=== PATIENT | female | born 1940 | race Caucasian/White ===

== ENCOUNTER → 2019-01-23 | Outpatient (CLI) | payer MEDICARE ==
[2016-03-12 10:25] VITALS: BP 172/76
[~2019-01-23] MED LIST: ALBU2.5V8 INH; BYSTOLIC5 MG PO; CONTRAST GIVEN. MC PRN; CRESTOR5 MG PO; DULO60CA6 PO; ESOM40CA PO; ESTR0.62 PO; IOHEXOL 180 MG/ML 10 ML VIAL. IT ONE; LIDOCAINE 1% Multi-Dose 20 ML VIAL. ID ONE; LISI-334 PO; ZOLP5TAB PO
--- NOTE | 2019-01-23 11:53 | KCIC ---
Lumbar Myelogram History: Lumbar radiculopathy, bilateral radiculopathy, previous surgery and stimulator Technique: Patient was informed of the risks of the procedure to include pain, infection, bleeding, seizures, nerve root injury, and allergic reaction to the contrast. All questions were answered. Patient signed a written consent form for a lumbar myelogram. The patient was placed in a prone oblique position on the fluoroscopy table. External site of the lower back was prepped and draped in the usual sterile fashion. Betadine was utilized for cleansing solution. 1% lidocaine was utilized for local anesthesia at the anticipated site of puncture right L2-3 interlaminar space. A 19-gauge guiding needle was advanced into the soft tissues. Through the guiding needle, a 25 gauge Otni needle was advanced until there was return of cerebral spinal fluid. Approximately 15 cc of Omnipaque 180 were then injected during fluoroscopic visualization. The needles were removed. Bandage was applied. Fluoroscopic spot images including standing images were acquired of the lumbar spine. The patient was then transferred to the CT department for CT examination of the lumbar spine. There were no immediate complications. Fluoroscopy time: 89 seconds, 16 images. FINDINGS: There is no evidence of myelographic block. There is intact posterolateral fusion hardware, and bilateral pedicle screws at L4 and L5 attached to vertical rods. There is mild grade 1 anterior spondylolisthesis at L4-5 similar with flexion and extension. There is minimal grade 1 anterior spondylolisthesis at L3-4, very slightly accentuated with flexion. There is minimal posterior subluxation L1 relative to L2 fairly similar with flexion and extension. There are small anterior extradural defects L1-2 and L2-3. There is degenerative disc disease greatest L1-2 and L5-S1. There are thoracic spinal stimulator leads not fully evaluated on this exam. Impression: 1. There are small anterior extradural defects greatest L1-2 and L2-3. There is multilevel mild abnormal alignment as stated. There is intact posterolateral fusion hardware L4-5. Electronically signed by: Fercho Evans MD (01/23/2019 11:50 AM) [facility]-KCIC1
--- NOTE | 2019-01-23 11:53 | KCIC ---
CT lumbar spine exam History: Lumbar radiculopathy, bilateral radiculopathy left greater than right, previous surgery, stimulator Technique: CT imaging was performed of the lumbar spine after injection for lumbar myelogram. Multiplanar reconstruction images are submitted. Exposure: One or more of the following individualized dose reduction techniques were utilized for this examination: 1. Automated exposure control 2. Adjustment of the mA and/or kV according to patient size 3. Use of iterative reconstruction technique. Comparison: February 14, 2007 Findings: There are no now bilateral pedicle screws at L4 and L5 attached to intact vertical rods. There is thoracic spinal stimulator, leads not fully evaluated, entering into the spinal canal above the T12-L1 level. There is again grade 1 anterior spondylolisthesis at L4-5, very minimal posterior subluxation L5 relative to S1. There is now very mild grade 1 anterior spondylolisthesis at L3-4, negligible posterior subluxation L1 relative to L2. There has been progression of moderate to severe L1-2 degenerative disc disease at which there is now vacuum disc disease. There is again vacuum disc disease at L5-S1, moderate to severe narrowing of the intervertebral disc space. There has been development of mild interbody calcification at L4-5 although no evidence of interbody fusion. Mild L3-4 degenerative disc disease has somewhat progressed in interval. Conus terminates near the T12-L1 level. There is mild levoscoliosis centered near L2-3. There is very mild right lateral subluxation L1 relative to L2. T12-L1: There is mild facet hypertrophic change. Spinal canal and neural foramina are adequate. L1-L2: There is now disc osteophyte complex and bulge superimposed on the minimally posteriorly subluxed L1 vertebral body margin, mild indentation upon the ventral thecal sac without significant spinal stenosis, very minimal narrowing of the far right lateral recess. There is mild to moderate facet degenerative change and minimal buckling of the ligamentum flavum. There is mild narrowing of the right neural foramen primarily from facet degenerative change, left neural foramen not significantly narrowed. Disc osteophyte complex is near the extraforaminal left L1 nerve root without significant displacement. L2-L3: There is severe right facet degenerative change, to lesser degree on the left. There is mild buckling of the ligamentum flavum. There is now minimal posterior bulge indenting the ventral thecal sac without significant spinal stenosis, increased very mild narrowing of the far lateral recesses bilaterally. Neural foramina are overall adequate. L3-L4: There is severe facet hypertrophic change. There has been posterior decompression at L4. Spinal canal and neural foramina are adequate. L4-L5: There has been posterior decompression, spinal canal adequate. There is mild narrowing of the left neural foramen by facet hypertrophic change and also inferiorly by disc osteophyte complex. Right neural foramen is overall adequate. Facet articulations are fused. L5-S1: There is [id number] buckling of the ligamentum flavum and mild facet hypertrophic change. There is minimal disc osteophyte complex superimposed on the posteriorly subluxed L5 vertebral body margin, no significant impingement of the descending S1 nerve roots. Spinal canal is overall adequate. There is moderate narrowing of the right neural foramen primarily from posteriorly and inferiorly by facet. There is also moderate to severe narrowing of the left neural foramen by disc osteophyte complex and facet degenerative change. Impression: 1. There is intact posterolateral fusion hardware at L4-5. 2. There is multilevel lumbar degenerative disc disease, progressed most notably at L1-2 since the 2006 exam. 3. There is no significant lumbar spinal stenosis, very mild narrowing of the far lateral recesses bilaterally at L2-3 and on the right at L1-2. 4. There is neural foramina compromise as stated most notable left greater than right at L5-S1, minimal narrowing on the left at L4-5 and on the right at L1-L2. 5. There is multilevel mild abnormal alignment as stated, multilevel facet degenerative change. There is mild lumbar levoscoliosis. Electronically signed by: Fercho Evans MD (01/23/2019 11:50 AM) [facility]-KCIC1
== END | disposition home or self-care (01) ==
LOC: KCIC 09:52
PROVIDERS: ATTEND Neurological Surgery
DX: M43.16 Spondylolisthesis, lumbar region (principal); M51.17 Intervertebral disc disorders with radiculopathy, lumbosacral region; M48.07 Spinal stenosis, lumbosacral region; M25.78 Osteophyte, vertebrae
CPT/HCPCS: 72132; 72265; Q9965

== ENCOUNTER → 2019-02-08 | Outpatient (CLI) | payer MEDICARE ==
[2016-03-12 10:25] VITALS: BP 172/76
[~2019-02-08] MED LIST changes: -CONTRAST GIVEN. MC PRN; -IOHEXOL 180 MG/ML 10 ML VIAL. IT ONE; -LIDOCAINE 1% Multi-Dose 20 ML VIAL. ID ONE
--- NOTE | 2019-02-09 09:42 | KCIC ---
Examination: HIP RIGHT 2 VIEW History: Pain Comparison/Correlation: None Findings: Frontal and frog-leg lateral view of the right hip were obtained. Right hip joint space narrowing is present. Osteopenia present no acute fracture or bone destruction. Postoperative findings of the lower lumbar spine are partially seen. Right femoral head contour is unremarkable. Subtle subchondral sclerosis of the right femoral head is noted. Impression: Mild right hip joint space narrowing. No acute fracture. Consider further evaluation if occult process is a persistent concern. Electronically signed by: Kole Delgadillo MD (02/09/2019 9:39 AM) [facility]
--- NOTE | 2019-02-09 09:43 | KCIC ---
Examination: HIP LEFT 2 VIEW History: Pain Comparison/Correlation: None Findings: 2 view exam of the left hip was performed. Postoperative changes of the lumbar spine are partially seen. Significant narrowing of the left hip joint space superolaterally is evident. Left femoral head contour is unremarkable. Osteopenia is notable. No acute displaced fracture or bone destruction. Impression: Significant narrowing of the left hip joint space superolaterally Significant osteopenia. Consider further imaging evaluation if occult process is a persistent concern. Electronically signed by: Kole Delgadillo MD (02/09/2019 9:40 AM) [facility]
== END | disposition home or self-care (01) ==
LOC: KCIC 14:28
PROVIDERS: ATTEND Neurological Surgery
DX: M85.88 Other specified disorders of bone density and structure, other site (principal); M25.851 Other specified joint disorders, right hip; M25.852 Other specified joint disorders, left hip
CPT/HCPCS: 73502

== ENCOUNTER → 2019-03-15 | Outpatient (CLI) | payer MEDICARE ==
[2016-03-12 10:25] VITALS: BP 172/76
[~2019-03-15] MED LIST changes: +BUPIVACAINE MPF 0.5% 10 ML VIAL for KCIC. IM ONE; +IOHEXOL 300 MG/ML 50 ML VIAL. INT ART ONE; +LIDOCAINE 1% Multi-Dose 20 ML VIAL. ID ONE; +methylPREDNISolone ACETATE 40 MG/ML VIAL. INT ART ONE
--- NOTE | 2019-03-15 12:38 | KCIC ---
PROCEDURE: Left hip steroid injection under fluoroscopic guidance INDICATION: Primary osteoarthritis. CONTRAST: Approximately 5 cc Omnipaque 300 FINDINGS: The risks, benefits and alternatives to the procedure were discussed with the patient. A timeout was performed to confirm the patient's identity and laterality of the injection. Utilizing sterile technique, fluoroscopic guidance and local anesthesia with 1% lidocaine, the left hip was accessed utilizing a 3.5" 22-gauge spinal needle. A small amount contrast was used to confirm the intra-articular location of the needle tip. Subsequently, a mixture containing 4 cc bupivacaine and 80 mg Depo-Medrol was injected. There were no immediate complications. Fluoroscopy time: 22 seconds Number of images obtained: 2 Impression: Technically successful left hip steroid injection under fluoroscopic guidance. Electronically signed by: CARMINA YUAN MD (03/15/2019 12:34 PM) [facility]-KCIC2
== END | disposition home or self-care (01) ==
LOC: KCIC 10:51
PROVIDERS: ATTEND Orthopaedic Surgery Sports Medicine
DX: M16.0 Bilateral primary osteoarthritis of hip (principal)
CPT/HCPCS: 20610; 77002; J1030; Q9967

== ENCOUNTER → 2019-09-19 | Outpatient (CLI) | payer MEDICARE ==
[2016-03-12 10:25] VITALS: BP 172/76
[~2019-09-19] MED LIST changes: +CONTRAST GIVEN. MC PRN
--- NOTE | 2019-09-19 15:48 | KCIC ---
EXAM: Fluoroscopically guided therapeutic left hip injection of steroid and anesthetic INDICATION: Left hip pain, chronic COMPARISON: Left hip injection 03/15/2019 TECHNIQUE/FINDINGS: The purpose of the procedure and risks including infection, bleeding, contrast reaction, and pain were discussed with the patient. Informed consent was obtained. A timeout was performed. After obtaining consent, the patient was placed supine on the fluoroscopy table with the left hip internally rotated. The skin overlying the left hip joint was marked, sterilized and draped. Superficial and deep soft tissues were anesthetized with 1% lidocaine. Utilizing fluoroscopic guidance, a 22-gauge 3.5" needle was advanced into the joint. Intraarticular position was confirmed with injection of a small amount of iodinated contrast. Subsequently, a solution containing 2 mL Depo-Medrol (40 mg/mL), 3 mL 0.5% bupivacaine, and 1 mL 1% lidocaine was injected into the joint. At the end of the procedure, the needle was removed. The overlying skin was cleansed and covered with a bandaid. The patient tolerated the procedure well and was free of immediate complications Total fluoroscopic time: 20 seconds. 2 images acquired. IMPRESSION: Technically successful fluoroscopically guided therapeutic left hip injection of steroid and anesthetic. Electronically signed by: Carol Winkler MD (09/19/2019 3:46 PM) [id number]
== END | disposition home or self-care (01) ==
LOC: KCIC 10:09
PROVIDERS: ATTEND Family Medicine
DX: M25.552 Pain in left hip (principal); G89.29 Other chronic pain
CPT/HCPCS: 20610; 77002; J1030; J3490; Q9967

== ENCOUNTER → 2019-12-14 | Outpatient (CLI) | payer MEDICARE ==
[2016-03-12 10:25] VITALS: BP 172/76
[~2019-12-14] MED LIST changes: -BUPIVACAINE MPF 0.5% 10 ML VIAL for KCIC. IM ONE; +BUPIVACAINE MPF 0.5% 10 ML VIAL. INT ART ONE; -CONTRAST GIVEN. MC PRN
--- NOTE | 2019-12-14 14:55 | KCIC ---
PROCEDURE: Left hip steroid injection under fluoroscopic guidance INDICATION: Chronic left hip pain. CONTRAST: 4 cc Omnipaque 300 FINDINGS: The risks, benefits and alternatives to the procedure were discussed with the patient. A timeout was performed to confirm the patient's identity and laterality of the injection. Utilizing sterile technique, fluoroscopic guidance and local anesthesia with 1% lidocaine, the left hip joint was accessed utilizing a 22-gauge 3.5" spinal needle. A small amount contrast was used to confirm the intra-articular location of the needle tip. Subsequently, 2 cc (80 mg) Depo-Medrol was injected. There were no immediate complications. Fluoroscopy time: 16 seconds Number of images obtained: 1 Impression: Technically successful left hip steroid injection under fluoroscopic guidance. Electronically signed by: CARMINA YUAN MD (12/14/2019 2:52 PM) [id number]
== END | disposition home or self-care (01) ==
LOC: KCIC 10:24
PROVIDERS: ATTEND Family Medicine
DX: M25.552 Pain in left hip (principal); G89.29 Other chronic pain; I10 Essential (primary) hypertension; Z79.899 Other long term (current) drug therapy
CPT/HCPCS: 20610; 77002; J1030; J3490; Q9967

== ENCOUNTER → 2020-02-08 | Outpatient (CLI) | payer MEDICARE ==
[2016-03-12 10:25] VITALS: BP 172/76
--- NOTE | 2020-02-08 17:35 | KCIC ---
FLUOROSCOPICALLY GUIDED LEFT HIP THERAPEUTIC INJECTION 1. INDICATION: The patient is a 79 years old Female who presented with left hip pain and osteoarthritis. 2. CONSENT: The risks, benefits, treatment options, potential complications and personnel to be involved were discussed (including the risks of radiation exposure, instruments to be used, contrast and anesthesia administration) with the patient. All questions were answered and consent was obtained. The patient indicated willingness to proceed. 3. GENERAL: a) Medication Reconciliation: The patient's medications and allergies were reviewed in the electronic medical record and reconciled to the proposed procedure/treatment. b) Positioning: The patient was placed Supine on the fluoroscopy table. c) The hip was then sterilely prepped and draped. d) Time Out: A time out was performed immediately prior to procedure start with the nursing, anesthesia and interventional team, correctly identifying the patient name, date of , procedure, anatomy (including marking of site and side), patient position, procedure consent form, relevant diagnostic and radiology test results, antibiotic administration, safety precautions, and procedure-specific equipment needs. Procedure Start Time / Timeout Time: 12:50 e) Anesthesia Type: Local anesthesia: 3 mL 1% Lidocaine 4. PROCEDURE: a) Procedure Details: A 20g spinal needle was inserted into the hip joint. 1 mL Omnipaque 300 was injected to confirm intra-articular placement of needle. Contrast was observed to flow into the intra-articular space of the joint without significant resistance. 6 mL of injectate was administered into the joint . The needle was removed. Images were stored to the permanent digital archive documenting needle position. b) Injectate Contents: 2 mL Methylprednisolone (Depo Medrol) 40mg/ml 4 mL Bupivacaine (Marcaine, Sensorcaine) c) Estimated Blood Loss: 0 mL RADIATION DOSE: Fluoroscopic Radiation Summary: Fluoro time: 00:09 min:sec POST PROCEDURE: a) Hemostasis: Hemostasis was achieved using light manual compression. b) Procedure End Time: 12:56 c) Conclusion: The patient was discharged from the radiology department in stable condition. COMPLICATIONS: a) Significant Patient Complication: None If other, explain: b) Complications during the procedure: None If other, explain: 5. RESULTS: Medication was injected into the joint. 6. IMPRESSION: SUCCESSFUL FLUOROSCOPICALLY GUIDED THERAPEUTIC INJECTION OF THE LEFT HIP DESCRIBED ABOVE. Electronically signed by: Sean Vásquez DO (02/08/2020 5:32 PM) [id number]
== END | disposition home or self-care (01) ==
LOC: KCIC 12:20
PROVIDERS: ATTEND Family Medicine
DX: M16.12 Unilateral primary osteoarthritis, left hip (principal); I10 Essential (primary) hypertension; K21.9 Gastro-esophageal reflux disease without esophagitis; J45.909 Unspecified asthma, uncomplicated; Z90.710 Acquired absence of both cervix and uterus; Z98.890 Other specified postprocedural states; Z79.899 Other long term (current) drug therapy
CPT/HCPCS: 20610; 77002; J1030; J3490; Q9967

== ENCOUNTER → 2020-06-30 | Outpatient (CLI) | payer MEDICARE ==
[2016-03-12 10:25] VITALS: BP 172/76
[~2020-06-30] MED LIST changes: -BUPIVACAINE MPF 0.5% 10 ML VIAL. INT ART ONE; -IOHEXOL 300 MG/ML 50 ML VIAL. INT ART ONE; -LIDOCAINE 1% Multi-Dose 20 ML VIAL. ID ONE; -LISI-334 PO; +LISI20TA18 PO; -methylPREDNISolone ACETATE 40 MG/ML VIAL. INT ART ONE
[2020-06-30 09:04] LABS: BASO # 0.1 x10^3/uL (0.0-0.2); BASO % 1 % (0-3); EOS # 0.2 x10^3/uL (0.0-0.7); EOS % 3 % (0-3); HEMATOCRIT 41.7 % (36.0-47.0); HEMOGLOBIN 13.8 g/dL (12.0-15.5); LYMPH # 1.7 x10^3/uL (1.0-4.8); LYMPH % 30 % (24-48); MEAN CORPUSCULAR HEMOGLOBIN 30 pg (25-35); MEAN CORPUSCULAR HGB CONC 33 g/dL (31-37); MEAN CORPUSCULAR VOLUME 90 fL (79-100); MONO # 0.6 x10^3/uL (0.0-1.1); MONO % 11 % (0-9); NEUT # 3.2 x10^3/uL (1.8-7.7); NEUT % 55 % (31-73); PLATELET COUNT 195 x10^3/uL (140-400); RED BLOOD COUNT 4.61 x10^6/uL (3.50-5.40); RED CELL DISTRIBUTION WIDTH 12.7 % (11.5-14.5); WHITE BLOOD COUNT 5.8 x10^3/uL (4.0-11.0)
[2020-06-30 09:13] LABS: CALCIUM 8.4 mg/dL (8.5-10.1); CREATININE 0.9 mg/dL (0.6-1.0); GFR 60.7; POTASSIUM 3.9 mmol/L (3.5-5.1)
[2020-06-30 09:17] LABS: PROTHROMBIN TIME PATIENT 13.1 SEC (11.7-14.0)
--- NOTE | 2020-06-30 11:34 | EKG ---
[facility] [address] [place] [address] Test Date: 2020-06-30 Test Time: 11:29:47 Pat Name: FLORENCE GASTELUM Department: Room: Gender: F [employer] Sales Associate: BETH : 1940 Requested By: JORDYN MCCORD Order Number: [id number] Reading MD: Jsoe Hammond Measurements Intervals [place] Rate: 66 P: 28 [place]: 148 QRS: -7 QRSD: 76 T: 62 QT: 396 QTc: 417 Interpretive Statements SINUS RHYTHM ATRIAL PREMATURE COMPLEX(ES) LEFTWARD AXIS OTHERWISE NORMAL ECG RI6.02 No previous ECG available for comparison Electronically Signed On 07-02-2020 13:49:47 CDT by Jose Hammond
--- NOTE | 2020-06-30 15:07 | RAD ---
XR CHEST 2V INDICATION: Reason: joint prehab patient-hx hypertension, PRE-OP CHEST HIP SURGERY 07/15. Instru ctions: / History: . COMPARISON STUDY: None. FINDINGS: Lungs: Normal lung volume. No pulmonary mass or consolidation. The tracheobronchial tree and hilar st ructures are normal. Pleura: No pleural effusion or pneumothorax. Heart and Mediastinum: The cardiomediastinal silhouette is normal. Tortuosity of the thoracic aorta. Bones and Soft Tissues: Degenerative changes of the spine. Spinal stimulator device leads. IMPRESSION: No acute cardiopulmonary process. Electronically signed by: Fercho Nina MD (06/30/2020 3:05 PM) [id number]
[2020-06-30 23:16] LABS: HEMOGLOBIN A1C 5.7 % (4.8-5.6)
== END ==
LOC: SURGPAT 11:22
PROVIDERS: ATTEND Orthopaedic Surgery
DX: Z01.818 Encounter for other preprocedural examination (principal); M16.12 Unilateral primary osteoarthritis, left hip; Z96.642 Presence of left artificial hip joint; I49.1 Atrial premature depolarization
CPT/HCPCS: 36415; 71046; 80048; 82040; 82306; 83036; 85025; 85610; 85651; 85730; 87641; 93005

== ENCOUNTER → 2020-07-11 | Outpatient (CLI) | payer MEDICARE ==
[~2020-07-11] MED LIST changes: +WARF-31 PO
[2020-07-16 06:10] VITALS: BP 142/74
== END ==
LOC: LAB 10:20
PROVIDERS: ATTEND Orthopaedic Surgery
DX: Z01.812 Encounter for preprocedural laboratory examination (principal); M16.12 Unilateral primary osteoarthritis, left hip; Z96.642 Presence of left artificial hip joint; Z91.018 Allergy to other foods; Z20.822 Contact with and (suspected) exposure to COVID-19
CPT/HCPCS: U0003; U0005

== ENCOUNTER 2021-06-14 15:10 | Inpatient (IN) | payer MEDICARE ==
[~2021-06-14] VITALS: Ht 157.5 cm; Wt 84.2 kg
[~2021-06-14 15:10] MED LIST changes: -DULO60CA6 PO; +DULO60CA7 PO; +OXYC5CAP PO; +TRAM50TA PO; +WARF3TAB50 PO
--- NOTE | 2021-06-14 15:26 | PHYS DOC ---
Past Medical History Smoking Status: Never Smoker (MICHELE VAUGHN DO) General Adult EDM: Chief Complaint: ABDOMINAL PAIN HPI: HPI: 80-year-old female past medical history of hypertension, hyperlipidemia and GERD, presents to the ED with complaints of sudden onset, sharp, right-sided upper abdominal pain with associated nausea, one episode of vomiting in ed. Last bowel movement was this morning, normal brown color. Last meal was at 10:30 AM. [place] well when waking up this morning. Denies any past surgical hist ory. (MICHELE VAUGHN DO) Review of Systems: Review of Systems: Constitutional: Denies fever or chills. [] Eyes: Denies change in visual acuity. [] HENT: Denies nasal congestion or sore throat. [] Respiratory: Denies cough or shortness of breath. [] Cardiovascular: Denies chest pain or edema. [] GI: Denies bloody stools or diarrhea. [] : Denies dysuria or hematuria Musculoskeletal: Denies back pain or joint pain. [] Integument: Denies rash or diaphoresis Neurologic: Denies headache, focal weakness or sensory changes. [] Endocrine: Denies polyuria or polydipsia. [] Lymphatic: Denies swollen glands. [] Psychiatric: Denies depression or anxiety. [] (MICHELE VAUGHN DO) Heart Score: C/O Chest Pain: No Risk Factors: Risk Factors: DM, Current or recent (<one month) smoker, HTN, HLP, family history of CAD, obesity. Risk Scores: Score 0 - 3: 2.5% MACE over next 6 weeks - Discharge Home Score 4 - 6: 20.3% MACE over next 6 weeks - Admit for Clinical Observation Score 7 - 10: 72.7% MACE over next 6 weeks - Early Invasive Strategies (MICHELE VAUGHN DO) Allergies: Allergies: Allergies Coded Allergies Type Severity Reaction Last Updated Verified cat dander Allergy Intermediate 06/14/21 Yes corn Allergy Intermediate 07/14/20 Yes Uncoded Allergies Type Severity Reaction Last Updated Verified DUST Allergy Intermediate 07/14/20 CAMEL HAIR Allergy Unknown 07/14/20 (MICHELE VAUGHN DO) Physical Exam: PE: Constitutional: Uncomfortable, writhing, in pain HENT: Normocephalic, atraumatic, dry mucous membranes Eyes: EOMI, conjunctiva normal, no discharge. Neck: Normal range of motion, supple, Cardiovascular: S1/2 present, regular rhythm Lungs & Thorax: Speaking in full sentences, bilateral equal chest rise, no tachypnea or increased work of breathing, active yellow emesis Abdomen: soft, right upper quadrant tenderness Skin: Warm, dry, no erythema, no rash. [] Back: No tenderness, no CVA tenderness. [] Extremities: No tenderness, no cyanosis, Neurologic: Alert and oriented X 3, normal motor function, normal sensory function, no focal deficits noted. [] Psychologic: Affect normal, judgement normal, mood normal. [] (MICHELE VAUGHN DO) EKG: EKG: Sinus rhythm 68 bpm, left axis deviation, normal intervals, no T wave inversion, no ST elevation or ST depression (MICHELE VAUGHN DO) Radiology/Procedures: Radiology/Procedures: IMAGING REPORT Signed PATIENT: FLORENCE GASTELUM ACCOUNT: [id number] : 1940 LOCATION: ER AGE: 80 SEX: F EXAM STATUS: PRE ER ORD. PHYSICIAN: MICHELE VAUGHN DO REASON: RUQ PAIN PROCEDURE: CT ABD PELV W/ IV CONTRST ONLY Exam: CT of abdomen and pelvis with contrast INDICATION: Right upper quadrant pain TECHNIQUE: Sequential axial images through the abdomen and pelvis obtained following the administration of 60 mL of Isovue-370 IV contrast. Sagittal and coronal reformatted images were reconstructed from the axial data and reviewed. Exposure: One or more of the following in the visualized dose reduction techniques were utilized for this examination: 1. Automated exposure control 2. Adjustment of the MA and/or KV according to patient size 3. Use of iterative of reconstructive technique Comparisons: None FINDINGS: Heart size is normal. No pericardial effusion. Strandy opacities the dependent p ortion lungs likely representing atelectasis. No pleural effusion. Mild diffuse hepatic steatosis. There is heterogenous hypoattenuating echotexture the liver with a nodular contour. Spleen, pancreas, gallbladder and adrenals are unremarkable. There is delayed enhancement of the right kidney with mild to moderate right- sided hydronephrosis and hydroureter. There is a 3 mm calculus at the distal right ureter. Nonobstructing right renal calculus is also seen. Bladder is partially distended and not well evaluated. Uterus is absent. No abnormal adnexal mass. Moderate amount of stool noted in the colon. Appendix is is not identified. No free intra-abdominal air or fluid. No obstruction. Abdominal aorta has normal course and caliber. Abdominal vasculature is patent. No enlarged abdominal lymph nodes are identified. No suspicious osseous lesions or acute fractures. IMPRESSION: 1. A 3 mm calculus at the distal right ureter causing mild to moderate right- sided hydronephrosis. 2. Nonobstructing right renal calculus is seen. 3. Cirrhotic morphology of the liver with heterogenous attenuation of the liver parenchyma. 4. Diverticulosis without evidence of acute diverticulitis. Electronically signed by: Evelin Bhatt MD (06/14/2021 4:42 PM) [facility] DICTATED and SIGNED BY: EVELIN BHATT MD DATE: 06/14/211637 (MICHELE VAUGHN DO) Course & Med Decision Making: Course & Med Decision Making Pertinent Labs and Imaging studies reviewed. (See chart for details) Concern for 3 mm right-sided ureterolithiasis with mild hydronephrosis. Patient reports longstanding history of incontinence and voided prior to coming to the emergency department. Patient is afebrile. Blood pressure is elevated and will need to be repeated patient is treated with antiemetics, analgesia and IV fluids. Is awaiting urinalysis and reevaluation for pain control. I signed out to oncoming physician Dr. Brock for further medical evaluation and management. (MICHELE VAUGHN DO) Course & Med Decision Making This patient was initially seen by Dr. Vaughn. Please see her note for H&P and HPI. I assumed care at 1800 tonight. She has a confirmed right distal 3 mm ureteral stone with hydronephrosis. UA was pending at time of transfer of care. Urinalysis does demonstrate occasional white blood cells, occasional RBCs, positive for leukocytes, some squamous cells but moderate bacteria. She is empirically given IV Rocephin. She reports feeling better. She had some significant nausea and vomiting symptoms as well as significant pain prior to her arrival. I have recommended hospitalization for antibiotics, IV fluids, urology consultation and symptom control. She does agree to this. Her primary care physician, Bonilla, is contacted, and he accepts her for admission. (KATRINA BROCK DO) Dragon Disclaimer: Dragon Disclaimer: This electronic medical record was generated, in whole or in part, using a voice recognition dictation system. (MICHELE VAUGHN DO) Departure Departure Impression: Primary Impression: Right ureteral stone Additional Impressions: Ureteral colic Urinary tract infection Qualified Codes: N39.0 - Urinary tract infection, site not specified; R31.9 - Hematuria, unspecified Nausea and vomiting Qualified Codes: R11.2 - Nausea with vomiting, unspecified Disposition: 09 ADMITTED INPATIENT Admitting Physician: Alicia Crystal (KATRINA BROCK DO) Condition: STABLE Referrals: ALICIA CRYSTAL MD (PCP) MICHELE VAUGHN DO Jun 14, 2021 15:26 KATRINA BROCK DO Jun 14, 2021 19:20
[2021-06-14 15:53] LABS: BASO # 0.1 x10^3/uL (0.0-0.2); BASO % 1 % (0-3); EOS # 0.1 x10^3/uL (0.0-0.7); EOS % 2 % (0-3); HEMATOCRIT 42.2 % (36.0-47.0); HEMOGLOBIN 13.7 g/dL (12.0-15.5); LYMPH % 15 % (24-48); MEAN CORPUSCULAR HEMOGLOBIN 28 pg (25-35); MEAN CORPUSCULAR HGB CONC 32 g/dL (31-37); MEAN CORPUSCULAR VOLUME 87 fL (79-100); MONO # 0.7 x10^3/uL (0.0-1.1); MONO % 11 % (0-9); NEUT # 4.8 x10^3/uL (1.8-7.7); NEUT % 71 % (31-73); PLATELET COUNT 222 x10^3/uL (140-400); RED BLOOD COUNT 4.85 x10^6/uL (3.50-5.40); RED CELL DISTRIBUTION WIDTH 14.8 % (11.5-14.5); WHITE BLOOD COUNT 6.7 x10^3/uL (4.0-11.0)
[2021-06-14] MEDS ORDERED: CONTRAST GIVEN. MC PRN (16:00)
[2021-06-14] MEDS ORDERED: IOHEXOL 300 MG/ML 100ML VIAL. IV ONE (16:00)
[2021-06-14 16:20] LABS: CALCIUM 9.2 mg/dL (8.5-10.1); GFR 53.6
--- NOTE | 2021-06-14 16:23 | RAD ---
XR CHEST 1V History: Reason: ruq pain / Spl. Instructions: / History: Comparison: June 30, 2020 Findings: No consolidation or pleural effusion. Normal heart size. No pneumothorax. Spinal stimulator leads not ed. Impression: 1. No acute cardiopulmonary process. Electronically signed by: Florencio Barahona DO (06/14/2021 4:20 PM) [facility]
[2021-06-14 16:25] LABS: ALBUMIN 3.6 g/dL (3.4-5.0); ALBUMIN/GLOBULIN RATIO 0.8 (1.0-1.7); MAGNESIUM 2.2 mg/dL (1.8-2.4); TOTAL BILIRUBIN 0.6 mg/dL (0.2-1.0)
--- NOTE | 2021-06-14 16:45 | RAD ---
Exam: CT of abdomen and pelvis with contrast INDICATION: Right upper quadrant pain TECHNIQUE: Sequential axial images through the abdomen and pelvis obtained following the administrati on of 60 mL of Isovue-370 IV contrast. Sagittal and coronal reformatted images were reconstructed fro m the axial data and reviewed. Exposure: One or more of the following in the visualized dose reduction techniques were utilized for this examination: 1. Automated exposure control 2. Adjustment of the MA and/or KV according to patient size 3. Use of iterative of reconstructive technique Comparisons: None FINDINGS: Heart size is normal. No pericardial effusion. Strandy opacities the dependent portion lungs likely r epresenting atelectasis. No pleural effusion. Mild diffuse hepatic steatosis. There is heterogenous hypoattenuating echotexture the liver with a no dular contour. Spleen, pancreas, gallbladder and adrenals are unremarkable. There is delayed enhancement of the right kidney with mild to moderate right-sided hydronephrosis and hydroureter. There is a 3 mm calculus at the distal right ureter. Nonobstructing right renal calculu s is also seen. Bladder is partially distended and not well evaluated. Uterus is absent. No abnormal adnexal mass. Moderate amount of stool noted in the colon. Appendix is is not identified. No free intra-abdominal a ir or fluid. No obstruction. Abdominal aorta has normal course and caliber. Abdominal vasculature is patent. No enlarged abdominal lymph nodes are identified. No suspicious osseous lesions or acute fractures. IMPRESSION: 1. A 3 mm calculus at the distal right ureter causing mild to moderate right-sided hydronephrosis. 2. Nonobstructing right renal calculus is seen. 3. Cirrhotic morphology of the liver with heterogenous attenuation of the liver parenchyma. 4. Diverticulosis without evidence of acute diverticulitis. Electronically signed by: Evelin Vazquez MD (06/14/2021 4:42 PM) [facility]
[2021-06-14] MEDS ORDERED: MORPHINE SULFATE 4 MG/ML INJ. IVP ONE ×2 (17:00)
[2021-06-14] MEDS ORDERED: ONDANSETRON PF 4 MG/2 ML VIAL. IVP ONE (17:00)
[2021-06-14] MEDS ORDERED: KETOROLAC 15 MG/ML VIAL. IVP ONE (17:15)
[2021-06-14] MEDS ORDERED: IV NORMAL SALINE 1000ML BAG 1,000 ML IV ONE ×2 (17:45→19:30)
[2021-06-14 18:28] LABS: BILIRUBIN,URINE NEGATIVE (NEG); CLARITY,URINE HAZY; COLOR,URINE YELLOW; NITRITE,URINE NEGATIVE (NEG); PROTEIN,URINE NEGATIVE (NEG-TRACE); UROBILINOGEN,URINE 0.2 mg/dL (0.2 mg/dL)
[2021-06-14 18:29] LABS: BACTERIA,URINE MANY /HPF (0-FEW); RBC,URINE OCC /HPF (0-2); WBC,URINE OCC /HPF (0-4)
--- NOTE | 2021-06-14 18:43 | EKG ---
[facility] [address] [place] [address] Test Date: 2021-06-14 Test Time: 15:23:24 Pat Name: FLORENCE GASTELUM Department: Room: Gender: F Manager Intern: : 1940 Requested By: MICHELE VAUGHN Order Number: [id number] Reading MD: Measurements Intervals [place] Rate: 68 P: -38 TN: 146 QRS: -20 QRSD: 80 T: 54 QT: 406 QTc: 437 Interpretive Statements SINUS RHYTHM LEFTWARD AXIS OTHERWISE NORMAL ECG RI6.02 No previous ECG available for comparison
[2021-06-14] MEDS ORDERED: cefTRIAXone IV Push 1 GM VIAL. IVP ONE (18:45)
[2021-06-14] MEDS ORDERED: ONDANSETRON PF 4 MG/2 ML VIAL. IVP PRN (19:30)
[2021-06-14] MEDS ORDERED: MORPHINE SULFATE 4 MG/ML INJ. IVP PRN (19:30)
[2021-06-14 23:00] VITALS: BP 125/61
[2021-06-15 03:00] VITALS: BP 106/50
[2021-06-15 07:15] VITALS: BP 114/45
--- NOTE | 2021-06-15 10:11 | PDOC2 ---
CHUCHO FERRARA 06/15/21 1011: UROLOGY CONSULT DOS: DATE: 06/15/21 TIME: 10:05 Reason for Consult: Kidney stone 80F admitted to the hospital following sudden onset right lower quadrant pain. CT done in the emergency department showed 3 mm distal right ureteral stone with moderate hydronephrosis. UA contaminated with squamous epithelial cells. She is afebrile. Creatinine stable at 1.0. Patient described the pain as sudden in onset and sharp and colicky. The pain has since resolved. She is incontinent at baseline empiric is in place. She is unsure if she has passed stone or not. She has no history of kidney stones. She is having gross hematuria. She is not on anticoagulation. She denies any previous interventions. She has not had any fevers or chills. Again overall she is feeling much better this morning. ROS Constitutional: Denies fevers, chills, weakness Cardiovascular: Denies chest pain, palpitations Respiratory: Denies shortness of breath, wheezing, dyspnea on exertion GI: Denies abdominal pain, nausea, vomiting : Denies dysuria, frequency, urgency, hematuria, urinary retention, flank pain Skin: Denies rash, bruising Musculoskeletal: Denies extremity pain, extremity edema Psychiatric: Denies stress, anxiety Past Surgical History: No pertinent history Current Medications Current Medications Iohexol (Omnipaque 300 Mg/ml) 75 ml 1X ONCE IV Last administered on 06/14/21at 16:00; Start 06/14/21 at 16:00; Stop 06/14/21 at 16:01; Status DC Info (CONTRAST GIVEN -- Rx MONITORING) 1 each PRN DAILY PRN MC SEE COMMENTS; Start 06/14/21 at 16:00; Stop 06/16/21 at 15:59 Ondansetron HCl (Zofran) 4 mg 1X ONCE IVP Last administered on 06/14/21at 17:27; Start 06/14/21 at 17:00; Stop 06/14/21 at 17:01; Status DC Morphine Sulfate (Morphine Sulfate) 4 mg 1X ONCE IVP Last administered on 06/14/21at 17:27; Start 06/14/21 at 17:00; Stop 06/14/21 at 17:01; Status DC Morphine Sulfate (Morphine Sulfate) 4 mg 1X ONCE IVP ; Start 06/14/21 at 17:00; Stop 06/14/21 at 17:01; Status DC Ketorolac Tromethamine (Toradol 15mg Vial) 15 mg 1X ONCE IVP Last administered on 06/14/21at 17:26; Start 06/14/21 at 17:15; Stop 06/14/21 at 17:22; Status DC Sodium Chloride 1,000 ml @ 1,000 mls/hr 1X ONCE IV Last administered on 06/14/21at 18:11; Start 06/14/21 at 17:45; Stop 06/14/21 at 18:44; Status DC Ceftriaxone Sodium (Rocephin) 1 gm 1X ONCE IVP Last administered on 06/14/21at 19:14; Start 06/14/21 at 18:45; Stop 06/14/21 at 18:46; Status DC Ondansetron HCl (Zofran) 4 mg PRN Q8HRS PRN IVP NAUSEA/VOMITING; Start 06/14/21 at 19:30; Stop 06/15/21 at 19:29 Sodium Chloride 1,000 ml @ 75 mls/hr 1X ONCE IV Last administered on 06/14/21at 23:25; Start 06/14/21 at 19:30; Stop 06/15/21 at 08:49; Status DC Acetaminophen (Tylenol) 650 mg PRN Q4HRS PRN PO pain or fever; Start 06/14/21 at 19:30 Morphine Sulfate (Morphine Sulfate) 4 mg PRN Q2HRS PRN IVP pain; Start 06/14/21 at 19:30 Active Scripts Active Tramadol Hcl 50 Mg Tablet 50 Mg PO Q4HRS PRN Oxycodone Hcl 5 Mg Capsule 5 Mg PO PRN Q4HRS PRN Reported Warfarin Sodium 3 Mg Tablet 3 Mg PO DAILY Ambien (Zolpidem Tartrate) 5 Mg Tablet 1 Tab PO QHS Bystolic (Nebivolol) 5 Mg Tablet 5 Mg PO DAILY Crestor (Rosuvastatin Calcium) 5 Mg Tablet 1 Tab PO DAILY Premarin (Estrogens, Conjugated) 0.625 Mg Tablet 1 Tab PO DAILY Nexium Capsule (Esomeprazole Magnesium) 40 Mg Capsule.dr 1 Cap PO DAILY Proair Hfa Inhaler (Albuterol Sulfate) 8.5 Gm Hfa.aer.ad 1 Puff INH PRN Q6HRS PRN Lisinopril 20 Mg Tablet 1 Tab PO DAILY Cymbalta (Duloxetine Hcl) 60 Mg Capsule.dr 90 Mg PO DAILY Allergies: Coded Allergies: cat dander (Verified Allergy, Intermediate, 06/14/21) corn (Verified Allergy, Intermediate, 07/14/20) Uncoded Allergies: DUST (Allergy, Intermediate, 07/14/20) CAMEL HAIR (Allergy, Unknown, 07/14/20) Physical Examination GENERAL: awake, alert, oriented SKIN: warm, dry RESPIRATORY: Aerating well, symmetrical expansion GI: Soft, nontender, no guarding, no rebound : Normal anatomy, no lesions, no CVA tenderness, pure wick in place draining brown-red clear urine MUSCULOSKELETAL: Moves all extremities, no edema NEURO: No gross abnormalities PSYCHIATRIC: Normal mood, normal affect, pleasant VITALS Vital Signs Date Time Temp Pulse Resp B/P (MAP) Pulse Ox O2 Delivery O2 Flow Rate FiO2 06/15/21 07:15 98.3 72 18 114/45 (68) 94 Room Air 98.3 Labs Laboratory Tests Test 06/14/21 15:38 06/14/21 18:00 06/14/21 19:10 06/14/21 22:30 White Blood Count 6.7 x10^3/uL (4.0-11.0) Red Blood Count 4.85 x10^6/uL (3.50-5.40) Hemoglobin 13.7 g/dL (12.0-15.5) Hematocrit 42.2 % (36.0-47.0) Mean Corpuscular Volume 87 fL (79-100) Mean Corpuscular Hemoglobin 28 pg (25-35) Mean Corpuscular Hemoglobin Concent 32 g/dL (31-37) Red Cell Distribution Width 14.8 % (11.5-14.5) Platelet Count 222 x10^3/uL (140-400) Neutrophils (%) (Auto) 71 % (31-73) Lymphocytes (%) (Auto) 15 % (24-48) Monocytes (%) (Auto) 11 % (0-9) Eosinophils (%) (Auto) 2 % (0-3) Basophils (%) (Auto) 1 % (0-3) Neutrophils # (Auto) 4.8 x10^3/uL (1.8-7.7) Lymphocytes # (Auto) 1.0 x10^3/uL (1.0-4.8) Monocytes # (Auto) 0.7 x10^3/uL (0.0-1.1) Eosinophils # (Auto) 0.1 x10^3/uL (0.0-0.7) Basophils # (Auto) 0.1 x10^3/uL (0.0-0.2) Sodium Level 143 mmol/L (136-145) Potassium Level 4.0 mmol/L (3.5-5.1) Chloride Level 106 mmol/L (98-107) Carbon Dioxide Level 27 mmol/L (21-32) Anion Gap 10 (6-14) Blood Urea Nitrogen 24 mg/dL (7-20) Creatinine 1.0 mg/dL (0.6-1.0) Estimated GFR (Cockcroft-Gault) 53.6 BUN/Creatinine Ratio 24 (6-20) Glucose Level 144 mg/dL (70-99) Calcium Level 9.2 mg/dL (8.5-10.1) Magnesium Level 2.2 mg/dL (1.8-2.4) Total Bilirubin 0.6 mg/dL (0.2-1.0) Aspartate Amino Transf (AST/SGOT) 35 U/L (15-37) Alanine Aminotransferase (ALT/SGPT) 35 U/L (14-59) Alkaline Phosphatase 101 U/L (46-116) Troponin I High Sensitivity 6 ng/L (4-50) 6 ng/L (4-50) 9 ng/L (4-50) EZ-Sof-Q-Type Natriuretic Peptide 218 pg/mL (0-449) Total Protein 8.0 g/dL (6.4-8.2) Albumin 3.6 g/dL (3.4-5.0) Albumin/Globulin Ratio 0.8 (1.0-1.7) Lipase 114 U/L (73-393) Urine Collection Type Unknown Urine Color Yellow Urine Clarity Hazy Urine pH 8.0 (<5.0-8.0) Urine Specific [place] 1.015 (1.000-1.030) Urine Protein Negative mg/dL (NEG-TRACE) Urine Glucose (UA) Negative mg/dL (NEG) Urine Ketones (Stick) Negative mg/dL (NEG) Urine Blood Moderate (NEG) Urine Nitrite Negative (NEG) Urine Bilirubin Negative (NEG) Urine Urobilinogen Dipstick 0.2 mg/dL (0.2 mg/dL) Urine Leukocyte Esterase Trace (NEG) Urine RBC Occ /HPF (0-2) Urine WBC Occ /HPF (0-4) Urine Squamous Epithelial Cells Mod /LPF Urine Bacteria Many /HPF (0-FEW) Laboratory Tests Test 06/14/21 15:38 06/14/21 18:00 06/14/21 19:10 06/14/21 22:30 White Blood Count 6.7 x10^3/uL (4.0-11.0) Red Blood Count 4.85 x10^6/uL (3.50-5.40) Hemoglobin 13.7 g/dL (12.0-15.5) Hematocrit 42.2 % (36.0-47.0) Mean Corpuscular Volume 87 fL (79-100) Mean Corpuscular Hemoglobin 28 pg (25-35) Mean Corpuscular Hemoglobin Concent 32 g/dL (31-37) Red Cell Distribution Width 14.8 % (11.5-14.5) Platelet Count 222 x10^3/uL (140-400) Neutrophils (%) (Auto) 71 % (31-73) Lymphocytes (%) (Auto) 15 % (24-48) Monocytes (%) (Auto) 11 % (0-9) Eosinophils (%) (Auto) 2 % (0-3) Basophils (%) (Auto) 1 % (0-3) Neutrophils # (Auto) 4.8 x10^3/uL (1.8-7.7) Lymphocytes # (Auto) 1.0 x10^3/uL (1.0-4.8) Monocytes # (Auto) 0.7 x10^3/uL (0.0-1.1) Eosinophils # (Auto) 0.1 x10^3/uL (0.0-0.7) Basophils # (Auto) 0.1 x10^3/uL (0.0-0.2) Sodium Level 143 mmol/L (136-145) Potassium Level 4.0 mmol/L (3.5-5.1) Chloride Level 106 mmol/L (98-107) Carbon Dioxide Level 27 mmol/L (21-32) Anion Gap 10 (6-14) Blood Urea Nitrogen 24 mg/dL (7-20) Creatinine 1.0 mg/dL (0.6-1.0) Estimated GFR (Cockcroft-Gault) 53.6 BUN/Creatinine Ratio 24 (6-20) Glucose Level 144 mg/dL (70-99) Calcium Level 9.2 mg/dL (8.5-10.1) Magnesium Level 2.2 mg/dL (1.8-2.4) Total Bilirubin 0.6 mg/dL (0.2-1.0) Aspartate Amino Transf (AST/SGOT) 35 U/L (15-37) Alanine Aminotransferase (ALT/SGPT) 35 U/L (14-59) Alkaline Phosphatase 101 U/L (46-116) Troponin I High Sensitivity 6 ng/L (4-50) 6 ng/L (4-50) 9 ng/L (4-50) TN-Nke-R-Type Natriuretic Peptide 218 pg/mL (0-449) Total Protein 8.0 g/dL (6.4-8.2) Albumin 3.6 g/dL (3.4-5.0) Albumin/Globulin Ratio 0.8 (1.0-1.7) Lipase 114 U/L (73-393) Urine Collection Type Unknown Urine Color Yellow Urine Clarity Hazy Urine pH 8.0 (<5.0-8.0) Urine Specific [place] 1.015 (1.000-1.030) Urine Protein Negative mg/dL (NEG-TRACE) Urine Glucose (UA) Negative mg/dL (NEG) Urine Ketones (Stick) Negative mg/dL (NEG) Urine Blood Moderate (NEG) Urine Nitrite Negative (NEG) Urine Bilirubin Negative (NEG) Urine Urobilinogen Dipstick 0.2 mg/dL (0.2 mg/dL) Urine Leukocyte Esterase Trace (NEG) Urine RBC Occ /HPF (0-2) Urine WBC Occ /HPF (0-4) Urine Squamous Epithelial Cells Mod /LPF Urine Bacteria Many /HPF (0-FEW) Assessment/Plan --Kidney stone Pain has resolved this morning. Likely has passed the kidney stone into the bladder. Will get KUB to evaluate Continue on daily Flomax. Urinalysis appears contaminated. I have very low suspicion for UTI. Creatinine is stable. continue to strain urine as well as hydrate. Did discuss stone management options including observation, ESWL and ureteroscopy with laser of stone. Due to stone being only 3 mm and the current location, high likelihood that the patient will pass this spontaneously. Should the pain return, did discuss with patient the best option would be a cystoscopy, right ureteroscopy, laser of stone and stent placement. Again we will refrain from this at this time but the risks were explained with the patient. She is okay to be discharged as long as her pain is controlled. Patient to follow-up in the urology clinic for kidney stone prevention discussion. Please call with other urology concerns d/w JOEL Palomares MD 06/16/21 0155: UROLOGY CONSULT Assessment/Plan Agree with assessment and plan. Ok for outpatient stone management. Followup in urology clinic. CHUCHO FERRARA Jun 15, 2021 10:11 JOEL MORGAN MD Jun 16, 2021 17:14
--- NOTE | 2021-06-15 10:30 | NUR ---
SW following. Discussed with RN, pt from home with spouse, room air, cardiac diet. Urology following. RN ordering PT/OT and a COVID in case placement needed. SW will continue to follow.
[2021-06-15 10:58] VITALS: BP 105/48
--- NOTE | 2021-06-15 11:02 | HP ---
DATE OF SERVICE: 06/15/2021 ADMIT DATE: 06/14/2021 CHIEF COMPLAINT AND HISTORY OF PRESENT ILLNESS: This 80-year-old female presented to the Emergency Room with excruciating right flank abdominal pain, was found to have a 3 mm distal right ureteral stone, admitted for pain control, etc. PAST MEDICAL HISTORY: Remarkable for longstanding history of asthma. She has also had chronic back pain with lumbar radiculopathy. She has hyperlipidemia, hypertension, GERD. MEDICATIONS: Brought with the patient, listed on the computer and have been addressed. ALLERGIES: SHE IS ALLERGIC TO CAMEL HAIR, DUST AND CAT DANDER WELL CORN. SOCIAL HISTORY: She is a lifetime nonsmoker, nondrinker, does not abuse drugs, currently caring for her who is on hospice at home. FAMILY HISTORY: Noncontributory. REVIEW OF SYSTEMS: Remarkable for the pain being much better than it was on admission, suggesting a stone was probably in her bladder, but we are awaiting Urology consult on straining urine and she may be able to go home later today. OBJECTIVE: GENERAL: She is well-developed, well-nourished female in no acute distress. VITAL SIGNS: Stable. She is afebrile. HEAD, EYES, EARS, NOSE AND THROAT: Unremarkable. NECK: Supple. No lymphadenopathy, no thyromegaly. CHEST: Clear to auscultation. HEART: Regular rate and rhythm without S3, S4 or murmur. ABDOMEN: Soft, without any tenderness, hepatosplenomegaly or masses. She has no CVA tenderness present. EXTREMITIES: Without cyanosis, clubbing, edema. NEUROLOGIC: She is intact. IMPRESSION: 1. Renal colic, likely passed a stone in the bladder, straining urine. 2. Other problems listed above. PLAN: Await urological evaluation with likely discharge later today. We will need and I explained to her to have the stone collected for analysis. CHRISSIE DR: Vicki TID: [id number]
--- NOTE | 2021-06-15 13:02 | RAD ---
XR ABDOMEN 1V History: Reason: RIGHT SIDE STONE EVALUATION / Spl. Instructions: / History: Technique: Supine views the abdomen. Comparison: CT June 14, 2021 Findings: Previously seen punctate right ureterovesical junction calculus is not well characterized on radiogra phs. Postop changes lumbar spine. Multilevel lumbar spinal stenosis. Spinal stimulator leads noted. N ondilated air-filled loops of small bowel throughout the abdomen. Air and stool scattered throughout the imaged colon. Imaged lung bases are degraded. Left hip arthroplasty. Right hip DJD. Impression: 1. Previously seen punctate right ureterovesical junction calculus on CT is not well characterized o n radiographs. Electronically signed by: Florencio Barahona DO (06/15/2021 12:59 PM) [id number]
[2021-06-15] MEDS: ACETAMINOPHEN 325 MG TABLET. PO PRN ×2 (13:25→23:07)
--- NOTE | 2021-06-15 15:00 | NUR ---
1450 PCR swab sent to lab
[2021-06-15 15:16] VITALS: BP_SYST 113; BP_SYST 119; BP_DIAS 55; BP_DIAS 76
[2021-06-15 19:00] VITALS: BP 124/54
[2021-06-15 23:00] VITALS: BP 150/70
[2021-06-16 03:00] VITALS: BP 150/64
[2021-06-16] MEDS: ACETAMINOPHEN 325 MG TABLET. PO PRN (06:13)
[2021-06-16 07:15] VITALS: BP 142/64
--- NOTE | 2021-06-16 08:33 | DS ---
DATE OF DISCHARGE: 06/16/2021 PRIMARY DIAGNOSIS: Right ureteral 3 mm stone with renal colic. ADDITIONAL DIAGNOSES: Asthma, lumbar radiculopathy, hypertension, hyperlipidemia. CHIEF COMPLAINT HISTORY OF PRESENT ILLNESS: This 80-year-old female presented to the Emergency Room with excruciating right flank and abdominal pain, found to have a 3 mm distal right ureteral stone, admitted for pain and symptom control. SUMMARY OF STAY: The patient was admitted, hydrated. Pain was controlled. She became pain free, but did not pass the stone during the stay and will be straining her urine at home following discharge and this has been explained to her. She was back to her baseline and ready for discharge on 06/16/2021. DISPOSITION: The patient is discharged to home. DIET: Regular diet. ACTIVITY: As tolerated. DISCHARGE MEDICATIONS: Listed on the med rec and have been addressed. OSIEL/SHARLENE/RADAMES DR: OSIEL/lula TID: [id number]
--- NOTE | 2021-06-16 11:00 | NUR ---
Discharge Note: FLORENCE GASTELUM Discharge instructions and discharge home medications reviewed with Patient and a copy given. All questions have been answered and understanding verbalized. The following instructions and handouts were given: information about follow up appointments, medications, activity, diet. Discontinued lines and drains: IV line in left AC removed, catheter tip intact. Patient discharged to home with self care with family member, wheelchair used for mobility to discharge vehicle.
--- NOTE | 2021-06-16 11:13 | PDOC ---
PROGRESS NOTE DATE OF SERVICE: DATE: 06/16/21 TIME: 11:11 CHIEF COMPLAINT: Patient is not having any pain. She has not noticed or passed a stone strainer or on the pure wick catheter. SUBJECTIVE: HPI: Duration: [] Quality: [] Severity: [] Site/Location: [] Problems: Problems Medical Problems: (1) Nausea and vomiting Status: Acute (2) Right ureteral stone Status: Acute (3) Ureteral colic Status: Acute (4) Urinary tract infection Status: Acute OBJECTIVE: Vital Signs: Vital Signs Date Time Temp Pulse Resp B/P (MAP) Pulse Ox O2 Delivery O2 Flow Rate FiO2 06/16/21 08:00 Room Air 06/16/21 07:15 98.6 86 20 142/64 (90) 95 Room Air 98.6 06/16/21 03:00 97.9 76 14 150/64 (92) 93 Room Air 97.9 06/15/21 23:00 98.4 86 14 150/70 (96) 91 Room Air 98.4 06/15/21 19:40 Room Air 06/15/21 19:00 98.5 82 14 124/54 (77) 90 Room Air 98.5 06/15/21 15:16 99.2 73 18 113/55 (74) 96 Room Air 99.2 06/15/21 14:24 Room Air I & O Intake and Output 06/16/21 07:00 Intake Total 1330 ml Balance 1330 ml Intake Oral 1330 ml # Voids 6 # Bowel Movements 1 PHYSICAL EXAM: Physical Exam: GENERAL: awake, alert, oriented SKIN: warm, dry RESPIRATORY: Aerating well, symmetrical expansion GI: Soft, nontender, no guarding, no rebound : Normal anatomy, no lesions, no CVA tenderness MUSCULOSKELETAL: Moves all extremities, no edema NEURO: No gross abnormalities PSYCHIATRIC: Normal mood, normal affect, pleasant LABS: Laboratory Tests Test 06/14/21 15:38 06/14/21 18:00 06/14/21 19:10 06/14/21 22:30 White Blood Count 6.7 x10^3/uL (4.0-11.0) Red Blood Count 4.85 x10^6/uL (3.50-5.40) Hemoglobin 13.7 g/dL (12.0-15.5) Hematocrit 42.2 % (36.0-47.0) Mean Corpuscular Volume 87 fL (79-100) Mean Corpuscular Hemoglobin 28 pg (25-35) Mean Corpuscular Hemoglobin Concent 32 g/dL (31-37) Red Cell Distribution Width 14.8 % (11.5-14.5) Platelet Count 222 x10^3/uL (140-400) Neutrophils (%) (Auto) 71 % (31-73) Lymphocytes (%) (Auto) 15 % (24-48) Monocytes (%) (Auto) 11 % (0-9) Eosinophils (%) (Auto) 2 % (0-3) Basophils (%) (Auto) 1 % (0-3) Neutrophils # (Auto) 4.8 x10^3/uL (1.8-7.7) Lymphocytes # (Auto) 1.0 x10^3/uL (1.0-4.8) Monocytes # (Auto) 0.7 x10^3/uL (0.0-1.1) Eosinophils # (Auto) 0.1 x10^3/uL (0.0-0.7) Basophils # (Auto) 0.1 x10^3/uL (0.0-0.2) Sodium Level 143 mmol/L (136-145) Potassium Level 4.0 mmol/L (3.5-5.1) Chloride Level 106 mmol/L (98-107) Carbon Dioxide Level 27 mmol/L (21-32) Anion Gap 10 (6-14) Blood Urea Nitrogen 24 mg/dL (7-20) Creatinine 1.0 mg/dL (0.6-1.0) Estimated GFR (Cockcroft-Gault) 53.6 BUN/Creatinine Ratio 24 (6-20) Glucose Level 144 mg/dL (70-99) Calcium Level 9.2 mg/dL (8.5-10.1) Magnesium Level 2.2 mg/dL (1.8-2.4) Total Bilirubin 0.6 mg/dL (0.2-1.0) Aspartate Amino Transf (AST/SGOT) 35 U/L (15-37) Alanine Aminotransferase (ALT/SGPT) 35 U/L (14-59) Alkaline Phosphatase 101 U/L (46-116) Troponin I High Sensitivity 6 ng/L (4-50) 6 ng/L (4-50) 9 ng/L (4-50) SD-Dzq-H-Type Natriuretic Peptide 218 pg/mL (0-449) Total Protein 8.0 g/dL (6.4-8.2) Albumin 3.6 g/dL (3.4-5.0) Albumin/Globulin Ratio 0.8 (1.0-1.7) Lipase 114 U/L (73-393) Urine Collection Type Unknown Urine Color Yellow Urine Clarity Hazy Urine pH 8.0 (<5.0-8.0) Urine Specific [place] 1.015 (1.000-1.030) Urine Protein Negative mg/dL (NEG-TRACE) Urine Glucose (UA) Negative mg/dL (NEG) Urine Ketones (Stick) Negative mg/dL (NEG) Urine Blood Moderate (NEG) Urine Nitrite Negative (NEG) Urine Bilirubin Negative (NEG) Urine Urobilinogen Dipstick 0.2 mg/dL (0.2 mg/dL) Urine Leukocyte Esterase Trace (NEG) Urine RBC Occ /HPF (0-2) Urine WBC Occ /HPF (0-4) Urine Squamous Epithelial Cells Mod /LPF Urine Bacteria Many /HPF (0-FEW) MEDICATIONS: Current Medications Medications (Trade) Dose Ordered Sig/Tarik Start Time Stop Time Status Last Admin Dose Admin Acetaminophen (Tylenol) 650 mg PRN Q4HRS PRN 06/14/21 19:30 06/16/21 11:05 DC 06/16/21 06:13 650 MG Ceftriaxone Sodium (Rocephin) 1 gm 1X ONCE 06/14/21 18:45 06/14/21 18:46 DC 06/14/21 19:14 1 GM Info (CONTRAST GIVEN -- Rx MONITORING) 1 each PRN DAILY PRN 06/14/21 16:00 06/16/21 11:05 DC Iohexol (Omnipaque 300 Mg/ml) 75 ml 1X ONCE 06/14/21 16:00 06/14/21 16:01 DC 06/14/21 16:00 60 ML Ketorolac Tromethamine (Toradol 15mg Vial) 15 mg 1X ONCE 06/14/21 17:15 06/14/21 17:22 DC 06/14/21 17:26 15 MG Morphine Sulfate (Morphine Sulfate) 4 mg PRN Q2HRS PRN 3/20/22 19:30 06/16/21 11:05 DC Ondansetron HCl (Zofran) 4 mg PRN Q8HRS PRN 06/14/21 19:30 06/15/21 19:29 DC Sodium Chloride 1,000 ml @ 75 mls/hr 1X ONCE 06/14/21 19:30 06/15/21 08:49 DC 06/14/21 23:25 75 MLS/HR ASSESSMENT & PLAN Kidney stone Reviewed x-ray imaging with the patient, no visible stone noted. She is pain- free. She is cleared from urology standpoint. Patient to follow-up in the next 2 to 4 weeks for an outpatient appointment. I did advise her that she is at risk for more kidney stones. Can complete a 24-hour urine collection as well as lab work on outpatient basis. Did discuss briefly stone prevention strategies including hydration, lemon and [place] juice, low sodium low oxalate diet. Please call with urology concerns Problem List: Problems Medical Problems: (1) Nausea and vomiting Status: Acute (2) Right ureteral stone Status: Acute (3) Ureteral colic Status: Acute (4) Urinary tract infection Status: Acute CHUCHO FERRARA Jun 16, 2021 11:13
== END 2021-06-16 11:00 | disposition home or self-care (01) | DRG 690 ==
LOC: ER 15:10 → 4 NORTH 19:00 → OBSVTOIN 19:51
PROVIDERS: ADMIT Family Medicine; ATTEND Family Medicine
DX: N13.6 Pyonephrosis (principal); E78.5 Hyperlipidemia, unspecified; I10 Essential (primary) hypertension; J45.909 Unspecified asthma, uncomplicated; R31.0 Gross hematuria; G89.29 Other chronic pain; K21.9 Gastro-esophageal reflux disease without esophagitis; M54.16 Radiculopathy, lumbar region; Z88.8 Allergy status to other drugs, medicaments and biological substances; Z20.822 Contact with and (suspected) exposure to COVID-19; E66.9 Obesity, unspecified; Z68.34 Body mass index [BMI] 34.0-34.9, adult
CPT/HCPCS: 36415; 71045; 74018; 74177; 80053; 81001; 83690; 83735; 83880; 84484; 85025; 87077; 87086; 87186; 93005; G0379; J0696; J1885; J2270; J2405; J7030; Q9967; U0003; 99285-25; G0378